=== PATIENT | female | born 1995 | race Two or more races ===

== ENCOUNTER 2018-07-19 14:25 | Emergency (ER) | payer SELFPAY ==
[~2018-07-19] VITALS: Ht 172.7 cm; Wt 60.8 kg
[2018-07-19 14:25] VITALS: BP 141/88
[2018-07-19] MEDS ORDERED: IBUPROFEN 600 MG TABLET PO ONE ×2 (15:50→16:00)
--- NOTE | 2018-07-19 15:55 | NUR ---
REESE WRAP APPLIED. D/C HOME IN STABLE CONDITION.
== END 2018-07-19 15:56 | disposition home or self-care (01) ==
LOC: ER 14:25
DX: S93.492A Sprain of other ligament of left ankle, initial encounter (principal); Z60.2 Problems related to living alone; X50.1XXA Overexertion from prolonged static or awkward postures, initial encounter; Y93.01 Activity, walking, marching and hiking; Y92.89 Other specified places as the place of occurrence of the external cause; Y99.8 Other external cause status
CPT/HCPCS: 73610-TC; A4606; Z7610